=== PATIENT | male | born 1960 | race Caucasian/White ===

== ENCOUNTER 2017-12-10 17:33 | Inpatient (IN) | payer BC ==
[2017-12-10] MEDS ORDERED: PIPERACILLIN-TAZOBACTAM 3.375 GM in DEXTROSE/WATER 1 50ML.BAG IVPB STA (18:37)
--- NOTE | 2017-12-10 18:38 | ED ---
General Adult HPI - General Chief complaint: Abdominal Pain Stated complaint: abdominal pain Time Seen by Provider: 12/10/17 17:35 Source: patient, RN notes reviewed, old records reviewed Mode of arrival: EMS Limitations: no limitations - History of Present Illness Initial comments: 57-year-old male presents as transfer from outside hospital. Patient has had intermittent abdominal pain for approximately one month. He has had worsening nausea and vomiting over the past 24 hours as well as change in his bowels. His had multiple bowel movements daily for the past several days including some rectal bleeding. Patient was seen and CT was obtained which did show a small bowel obstruction with intussusception of the distal ileum. He was transferred for surgical evaluation. - Related Data Home Medications Medication Instructions Recorded Confirmed Bifidobacterium Infantis [Align] 10.5 mg PO DAILY 12/10/17 12/10/17 Ibuprofen [Motrin Ib] 200 mg PO DAILY 12/10/17 12/10/17 Saw [place] 1,000 mg PO DAILY 12/10/17 12/10/17 Allergies Allergy/AdvReac Type Severity Reaction Status Date / Time pollen extracts Allergy Dyspnea Verified 12/10/17 17:54 fentanyl AdvReac Nausea & Verified 12/10/17 17:54 Vomiting Review of Systems ROS Statement: Those systems with pertinent positive or pertinent negative responses have been documented in the HPI. ROS Other: All systems not noted in ROS Statement are negative. Past Medical History Past Medical History: No Reported History Additional Past Medical History / Comment(s): GALLSTONES, NAUSEA, DIARRHEA History of Any Multi-Drug Resistant Organisms: None Reported Past Surgical History: Back Surgery, Cholecystectomy, Orthopedic Surgery Additional Past Surgical History / Comment(s): RIGHT KNEE,. LEFT ANKLE,. LEFT ARM SEVERED ARTERY REPAIRED Past Anesthesia/Blood Transfusion Reactions: Postoperative Nausea & Vomiting ( PONV) Past Psychological History: No Psychological Hx Reported Smoking Status: Never smoker Past Alcohol Use History: Occasional Past Drug Use History: None Reported - Past Family History Father Family Medical History: Cancer Mother Family Medical History: Cancer Sister(s) Family Medical History: Cancer General Exam Limitations: no limitations General appearance: alert, in no apparent distress Head exam: Present: atraumatic, normocephalic Eye exam: Present: normal appearance, PERRL, EOMI ENT exam: Present: normal exam Neck exam: Present: normal inspection. Absent: tenderness, meningismus Respiratory exam: Present: normal lung sounds bilaterally. Absent: respiratory distress, wheezes Cardiovascular Exam: Present: regular rate, normal rhythm GI/Abdominal exam: Present: soft, distended, tenderness (Generalized tenderness to palpation, no rebound or guarding) Extremities exam: Present: normal inspection, full ROM, normal capillary refill. Absent: pedal edema Neurological exam: Present: alert, oriented X3, CN II-XII intact. Absent: motor sensory deficit Psychiatric exam: Present: normal affect, normal mood Skin exam: Present: warm, dry, intact. Absent: cyanosis, diaphoretic Course Vital Signs 12/10/17 17:51 Temperature 98.5 F Pulse Rate 93 Respiratory 18 Rate Blood Pressure 146/88 O2 Sat by Pulse 98 Oximetry Medical Decision Making - Medical Decision Making Laboratory studies from outside hospital are reviewed, white blood cell count 15.7, hemoglobin 17.1, creatinine is 1.1. Urinalysis showed 1+ ketones consistent with dehydration. CT will be uploaded the system, the interpretation by radiologist does reveal small bowel instruction and 10 cm intussusception of the distal ileum. This is discussed with Dr. Steward, he requests NG tube for decompression and will evaluate the patient. Disposition Clinical Impression: Intussusception of intestine, Small bowel obstruction Disposition: ADMITTED IP TO THIS HOSP Condition: Stable Is patient prescribed a controlled substance at d/c from ED?: No Referrals: Cyril Reynolds MD [Primary Care Provider] - 1-2 days Decision to Admit Reason: Admit from EC Decision Date: 12/10/17 Decision Time: 18:50
[2017-12-10] MEDS ORDERED: SODIUM CHLORIDE 0.9% 1,000 ML IV SCH (18:45)
[2017-12-10] MEDS ORDERED: NALOXONE 0.4 MG/ML 1 ML VIAL IV PRN (18:46)
[2017-12-10] MEDS: ONDANSETRON 4 MG/2 ML VIAL IVP PRN (19:57)
[2017-12-10] MEDS: LACTATED RINGERS 1,000 ML IV SCH (22:16)
[2017-12-11] MEDS: HYDROmorphone 0.5 MG/0.5 ML SYRINGE IVP PRN ×3 (01:25→11:01)
[2017-12-11] MEDS: LACTATED RINGERS 1,000 ML IV SCH ×5 (04:59→22:16)
--- NOTE | 2017-12-11 07:29 | XR ---
EXAMINATION TYPE: XR abdomen 2V DATE OF EXAM: 12/11/2017 COMPARISON: NONE INDICATION: Distention TECHNIQUE: Single view abdomen upright view. Additional supine view was obtained. FINDINGS: Multiple air-fluid levels are within prominent small bowel loops upper abdomen. Little bowel gas is w ithin the colon. Cholecystectomy clips are in the right upper quadrant. No free air is present. Nasogastric tube is in left arm in the abdomen. Psoas margins are normal. Postsurgical changes are within L4-S1 levels. Mass effect is not evident. IMPRESSION: 1. Findings compatible with high-grade small bowel obstruction.
[2017-12-11 07:42] LABS: Basophils % (A) 0 %; Eosinophils # (A) 0.1 k/uL (0-0.7); Eosinophils % (A) 1 %; HCT 47.9 % (39.0-53.0); HGB 15.9 gm/dL (13.0-17.5); Lymphocytes # (A) 1.9 k/uL (1.0-4.8); Lymphocytes % (A) 14 %; MCH 31.8 pg (25.0-35.0); MCHC 33.1 g/dL (31.0-37.0); Mean Platelet Volume 7.3; Monocytes # (A) 0.8 k/uL (0-1.0); Monocytes % (A) 6 %; Neutrophils # (A) 10.5 k/uL (1.3-7.7); Neutrophils % (A) 78 %; Platelet Count 277 k/uL (150-450); RBC 4.99 m/uL (4.30-5.90); RDW 13.4 % (11.5-15.5); WBC 13.5 k/uL (3.8-10.6)
[2017-12-11 08:01] LABS: Albumin 3.8 g/dL (3.5-5.0); Calcium 9.7 mg/dL (8.4-10.2); Magnesium 2.1 mg/dL (1.6-2.3); Total Bilirubin 1.1 mg/dL (0.2-1.3); Total Protein 6.2 g/dL (6.3-8.2)
--- NOTE | 2017-12-11 10:32 | P.GSHP ---
History of Present Illness H&P Date: 12/11/17 57-year-old male presents from an outside facility due to finding of small bowel obstruction. He states that over the past month, he has had episodes of abdominal pain that is mostly been epigastric in nature. He states yesterday he suddenly had lower abdominal pain that was severe in nature. 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 He complained of some nausea but denied any emesis episodes. He presented to an outside facility and was found to have leukocytosis on workup and CT of the abdomen and pelvis illustrated a intussusception. He denies ever having this type of pain previously. He states his only previous abdominal surgery has been a gallbladder procedure. He states his pain is somewhat improved today. He denies any fevers, chills, chest pain or shortness of breath. He has no additional complaints at this time. - Review of Systems All systems: negative Past Medical History Past Medical History: No Reported History Additional Past Medical History / Comment(s): GALLSTONES, NAUSEA, DIARRHEA History of Any Multi-Drug Resistant Organisms: None Reported Past Surgical History: Back Surgery, Cholecystectomy, Orthopedic Surgery Additional Past Surgical History / Comment(s): RIGHT KNEE,. LEFT ANKLE,. LEFT ARM SEVERED ARTERY REPAIRED Past Anesthesia/Blood Transfusion Reactions: Postoperative Nausea & Vomiting ( PONV) Past Psychological History: No Psychological Hx Reported Smoking Status: Never smoker Past Alcohol Use History: Occasional Past Drug Use History: None Reported - Past Family History Father Family Medical History: Cancer Mother Family Medical History: Cancer Sister(s) Family Medical History: Cancer Medications and Allergies Home Medications Medication Instructions Recorded Confirmed Type Bifidobacterium Infantis [Align] 10.5 mg PO DAILY 12/10/17 12/10/17 History Ibuprofen [Motrin Ib] 200 mg PO DAILY 12/10/17 12/10/17 History Saw [place] 1,000 mg PO DAILY 12/10/17 12/10/17 History Allergies Allergy/AdvReac Type Severity Reaction Status Date / Time pollen extracts Allergy Dyspnea Verified 12/10/17 17:54 fentanyl AdvReac Nausea & Verified 12/10/17 17:54 Vomiting Surgical - Exam Osteopathic Statement: *. No significant issues noted on an osteopathic structural exam other than those noted in the History and Physical/Consult. Vital Signs Temp Pulse Resp BP Pulse Ox 98.5 F 93 18 146/88 98 12/10/17 17:51 12/10/17 17:51 12/10/17 17:51 12/10/17 17:51 12/10/17 17:51 - General well nourished, no distress - Eyes normal ocular movement - ENT normal mucosa, no hearing loss - Neck trachea midline - Respiratory No difficulty with respiration - Abdomen Soft, tenderness in the lower portion of his abdomen, mildly distended, no rebound, no guarding - Neurologic normal coordination, normal sensation - Musculoskeletal normal gait - Psychiatric oriented to time, oriented to person, oriented to place, speech is normal Results - Labs 12/11/17 06:30 12/11/17 06:30 Abnormal Lab Results - Last 24 Hours (Table) 12/11/17 12/11/17 Range/Units 06:30 06:30 WBC 13.5 H (3.8-10.6) k/uL Neutrophils # 10.5 H (1.3-7.7) k/uL BUN 23 H (9-20) mg/dL Glucose 107 H (74-99) mg/dL Total Protein 6.2 L (6.3-8.2) g/dL Diabetes panel 12/11/17 Range/Units 06:30 Sodium 141 (137-145) mmol/L Potassium 5.0 (3.5-5.1) mmol/L Chloride 104 (98-107) mmol/L Carbon Dioxide 26 (22-30) mmol/L BUN 23 H (9-20) mg/dL Creatinine 1.08 (0.66-1.25) mg/dL Glucose 107 H (74-99) mg/dL Calcium 9.7 (8.4-10.2) mg/dL AST 26 (17-59) U/L ALT 32 (21-72) U/L Alkaline Phosphatase 50 (38-126) U/L Total Protein 6.2 L (6.3-8.2) g/dL Albumin 3.8 (3.5-5.0) g/dL Calcium panel 12/11/17 Range/Units 06:30 Calcium 9.7 (8.4-10.2) mg/dL Albumin 3.8 (3.5-5.0) g/dL Pituitary panel 12/11/17 Range/Units 06:30 Sodium 141 (137-145) mmol/L Potassium 5.0 (3.5-5.1) mmol/L Chloride 104 (98-107) mmol/L Carbon Dioxide 26 (22-30) mmol/L BUN 23 H (9-20) mg/dL Creatinine 1.08 (0.66-1.25) mg/dL Glucose 107 H (74-99) mg/dL Calcium 9.7 (8.4-10.2) mg/dL Adrenal panel 12/11/17 Range/Units 06:30 Sodium 141 (137-145) mmol/L Potassium 5.0 (3.5-5.1) mmol/L Chloride 104 (98-107) mmol/L Carbon Dioxide 26 (22-30) mmol/L BUN 23 H (9-20) mg/dL Creatinine 1.08 (0.66-1.25) mg/dL Glucose 107 H (74-99) mg/dL Calcium 9.7 (8.4-10.2) mg/dL Total Bilirubin 1.1 (0.2-1.3) mg/dL AST 26 (17-59) U/L ALT 32 (21-72) U/L Alkaline Phosphatase 50 (38-126) U/L Total Protein 6.2 L (6.3-8.2) g/dL Albumin 3.8 (3.5-5.0) g/dL - Imaging CT scan - abdomen: report reviewed CT scan - pelvis: report reviewed Assessment and Plan (1) Intussusception of intestine Current Visit: Yes Status: Acute Code(s): K56.1 - INTUSSUSCEPTION SNOMED Code(s): 40442609 (2) Small bowel obstruction Narrative/Plan: Due to finding of small bowel obstruction, I did discuss this case in depth with radiology department. I also did order a abdominal x-ray to continue to follow the obstruction. The radiologist does agree with the finding of intussusception of the small bowel. The patient does continue to have evidence of obstruction on x-ray. He is not peritoneal in his examination. Due to the consistent obstruction and finding of intussusception, we will plan for an exploratory laparotomy. NG tube is in place and we will continue to keep this in place. IV fluid resuscitation is ongoing. I discussed this with the patient and the patient is agreeable to this plan. Current Visit: Yes Status: Acute Code(s): K56.609 - UNSP INTESTNL OBST, UNSP TO PARTIAL VERSUS COMPLETE OBST SNOMED Code(s): 509431593
[2017-12-11] MEDS ORDERED: IV FLUID CONTINUATION 1,000 ML IV ONE (11:58)
[2017-12-11] MEDS: ONDANSETRON 4 MG/2 ML VIAL IVP PRN ×2 (12:11→21:11)
[2017-12-11] MEDS: HEPARIN SODIUM,PORCINE 5,000 UNIT/ML 1 ML VIAL SQ SCH ×2 (13:05→23:50)
[2017-12-11] MEDS ORDERED: metroNIDAZOLE-NS PMX 500 MG in SALINE 1 100ML.BAG IVPB STA (13:07)
[2017-12-11] MEDS ORDERED: SUCCINYLCHOLINE CHLORIDE 100 MG/5 ML SYR IV ONE (13:10)
[2017-12-11] MEDS ORDERED: LIDOCAINE 1% INJ 10MG/ML (20 ML MDV) ONE (13:10)
[2017-12-11] MEDS ORDERED: DEXAMETHASONE SOD PHOS (MDV) 100 MG/10 ML VIAL ONE (13:10)
[2017-12-11] MEDS ORDERED: ROCURONIUM BROMIDE 10 MG/ML 10 ML VIAL IV ONE (13:10)
[2017-12-11] MEDS ORDERED: NEOSTIGMINE 1 MG/ML 10 ML VIAL ONE (13:10)
[2017-12-11] MEDS ORDERED: ONDANSETRON 4 MG/2 ML VIAL ONE (13:10)
[2017-12-11] MEDS ORDERED: PROPOFOL 10 MG/ML 20 ML VIAL IV ONE (13:10)
[2017-12-11] MEDS ORDERED: HYDROmorphone (PF) 1 MG/ML ONE (13:10)
[2017-12-11] MEDS ORDERED: ceFAZolin IN SWFI 2 GM/20 ML SYRINGE IVP STA (13:10)
[2017-12-11] MEDS ORDERED: MIDAZOLAM 2 MG/2 ML VIAL ONE (13:10)
[2017-12-11] MEDS ORDERED: GLYCOPYRROLATE 0.2 MG/ML 2 ML VIAL ONE (13:10)
[2017-12-11] MEDS ORDERED: LACTATED RINGERS 1,000 ML IV ONE ×2 (13:40→15:00)
--- NOTE | 2017-12-11 14:57 | P.OP ---
Date of Procedure: 12/11/17 Preoperative Diagnosis: Small bowel obstruction Postoperative Diagnosis: Intussusception of small bowel Small bowel mass Procedure(s) Performed: Expiratory laparotomy Small bowel resection Anesthesia: AZAR Surgeon: Juvenal Steward Pathology: other (Small bowel, small bowel mass) Condition: stable Disposition: floor Indications for Procedure: 57-year-old male presented to the emergency department as a transfer from another hospital due to small bowel obstruction. On CT of the abdomen and pelvis he was suspected to have intussusception. His small bowel obstruction did not improve with nasogastric tube decompression and due to continued small bowel obstruction symptoms, expiratory laparotomy was planned. The patient was explained the risks, benefits and alternatives to the procedure. He did provide consent prior to attending the operating suite. Operative Findings: Small bowel mass and intussusception of the small bowel was noted Description of Procedure: The patient was brought into the operating suite and placed in supine position on the operating table. Sedation was provided by anesthesia and the patient underwent endotracheal intubation. The patient was then prepped and draped in regular sterile fashion. A midline vertical incision was made dissection was carried to the fascia and the fascia was incised along the length of the incision. There was noted to be some mild fluid that had built up in the abdomen. The small bowel was noted to be dilated and was eviscerated from the abdomen. The small bowel was then run from the ligament of Treitz distally. In the ileum a site of obstruction was noted add-in intussusception. Proximally from this point, dilation of the bowel was noted. Distally from the site, the bowel was noted to be decompressed. The intussusception was reduced and a small bowel mass was noted. Both a point of proximal and distal transection were decided. Windows were created in the mesentery. DOMINGO blue load 75 mm staplers were fired at both of these ends. A LigaSure device was then used to resect the small bowel from the mesentery. Hemostasis was noted to be maintained. At this point, a anastomosis was created between the 2 portions of small bowel. Enterotomies were created at both ends and a side-to- side anastomosis was created using a DOMINGO 75 mm blue load stapler. Hemostasis was continued to be maintained. A TX stapler was then used to close the resulting enterotomy. A 3-0 Vicryl suture was used at the crotch of the staple line to prevent tension on the staple line. The defect in the mesentery was closed with a running 2-0 Vicryl suture. Hemostasis was noted to be maintained. At this point copious muss irrigation was used within the abdomen. The nasogastric tube was palpated within the stomach. The liver was palpated and no obvious mass was noted. At this point the fascia was closed with a running looped PDS suture. Skin was then closed with skin basim. The patient was then awakened in the operating suite and taken to the postanesthesia care unit in stable condition.
[2017-12-11] MEDS ORDERED: HYDROmorphone 1 MG/ML 1 ML SYRINGE IVP ONE ×2 (15:05→15:13)
[2017-12-11] MEDS: ceFAZolin 1,000 MG in DEXTROSE/WATER 1 50ML.BAG IVPB SCH (21:11)
[2017-12-11] MEDS: metroNIDAZOLE-NS PMX 500 MG in SALINE 1 100ML.BAG IVPB SCH (21:20)
[2017-12-12] MEDS: metroNIDAZOLE-NS PMX 500 MG in SALINE 1 100ML.BAG IVPB SCH (03:49)
[2017-12-12] MEDS: ceFAZolin 1,000 MG in DEXTROSE/WATER 1 50ML.BAG IVPB SCH (03:49)
[2017-12-12] MEDS: LACTATED RINGERS 1,000 ML IV SCH ×6 (03:53→20:58)
[2017-12-12] MEDS: HYDROmorphone 0.5 MG/0.5 ML SYRINGE IVP PRN ×3 (05:21→19:13)
[2017-12-12 07:39] LABS: Basophils % (A) 0 %; Eosinophils # (A) 0.1 k/uL (0-0.7); Eosinophils % (A) 0 %; HCT 46.9 % (39.0-53.0); HGB 15.3 gm/dL (13.0-17.5); Lymphocytes # (A) 1.5 k/uL (1.0-4.8); Lymphocytes % (A) 8 %; MCH 31.6 pg (25.0-35.0); MCHC 32.5 g/dL (31.0-37.0); Mean Platelet Volume 7.2; Monocytes # (A) 1.1 k/uL (0-1.0); Monocytes % (A) 6 %; Neutrophils # (A) 14.9 k/uL (1.3-7.7); Neutrophils % (A) 84 %; Platelet Count 262 k/uL (150-450); RBC 4.84 m/uL (4.30-5.90); RDW 13.2 % (11.5-15.5); WBC 17.8 k/uL (3.8-10.6)
[2017-12-12 07:59] LABS: ALT 32 U/L (21-72); AST 24 U/L (17-59); Albumin 3.5 g/dL (3.5-5.0); Alkaline Phosphatase 42 U/L (38-126); Anion Gap 12 mmol/L; Blood Urea Nitrogen 19 mg/dL (9-20); Carbon Dioxide 27 mmol/L (22-30); Chloride 100 mmol/L (98-107); Glucose 109 mg/dL (74-99); Potassium 4.3 mmol/L (3.5-5.1); Sodium 139 mmol/L (137-145); Total Protein 5.8 g/dL (6.3-8.2)
--- NOTE | 2017-12-12 08:35 | P.PN ---
Subjective Progress Note Date: 12/12/17 Patient seen and examined at bedside. Overnight, did receive a patent secondary to Hammond catheter issue. It appeared that the Hammond catheter did have a clot at the tip he was unable to drain. This seemed to resolve with flushes. He denies any nausea and vomiting. NG tube has been in place with continued bilious output. He denies any flatus or bowel movement. Objective - Vital Signs Vital signs: Vital Signs Temp 98.5 F 12/12/17 07:33 Pulse 79 12/12/17 07:33 Resp 16 12/12/17 07:33 BP 136/79 12/12/17 07:33 Pulse Ox 97 12/12/17 07:33 Intake & Output 12/11/17 12/12/17 12/12/17 18:59 06:59 18:59 Intake Total 2775 2170 Output Total 535 1750 350 Balance 2240 420 -350 Intake: IV 2775 1200 Lactated Ringers 1,000 ml 625 1200 @ 150 mls/hr IV .Q6H40M [facility] Rx#:[id number] Intake, IV Titration 970 Amount Lactated Ringers 1,000 ml 370 As IV .STK-MED ONE Rx#: [id number] ceFAZolin 1,000 mg In 300 Dextrose/Water 1 50ml.bag @ 100 mls/hr IVPB Q8H [facility] Rx#:[id number] metroNIDAZOLE-NS PMX 500 300 mg In Saline 1 100ml.bag @ 100 mls/hr IVPB Q8H [facility] Rx#:[id number] Output: Gastric Drainage 50 300 Urine 465 1450 350 Uretheral (Hammond) 1000 350 Estimated Blood Loss 20 Other: Voiding Method Indwelling Catheter Indwelling Catheter Indwelling Catheter # Voids 3 1 - Constitutional General appearance: Present: cooperative, no acute distress - Respiratory Details: No difficulty with respiration - Gastrointestinal Gastrointestinal Comment(s): Soft, appropriate tenderness, nondistended, no rebound, no guarding, midline incision with surgical dressing in place - Psychiatric Psychiatric: Present: A&O x's 3, appropriate affect - Labs CBC & Chem 7: 12/12/17 06:58 12/12/17 06:58 Labs: Abnormal Lab Results - Last 24 Hours (Table) 12/12/17 12/12/17 Range/Units 06:58 06:58 WBC 17.8 H (3.8-10.6) k/uL Neutrophils # 14.9 H (1.3-7.7) k/uL Monocytes # 1.1 H (0-1.0) k/uL Glucose 109 H (74-99) mg/dL Total Protein 5.8 L (6.3-8.2) g/dL Assessment and Plan (1) Intussusception of intestine Current Visit: Yes Status: Acute Code(s): K56.1 - INTUSSUSCEPTION SNOMED Code(s): 28794085 (2) Small bowel obstruction Narrative/Plan: Postoperative day #1 status post exploratory laparotomy and small bowel resection - Continue NG tube to low intermittent suction - Discontinue Hammond catheter - I discussed and encouraged ambulation and incentive spirometry with the patient - Keep nothing by mouth, located have ice chips and chew gum - Awaiting pathology for small bowel mass that was resected - Progressing slowly Current Visit: Yes Status: Acute Code(s): K56.609 - UNSP INTESTNL OBST, UNSP TO PARTIAL VERSUS COMPLETE OBST SNOMED Code(s): 477485690
[2017-12-12] MEDS: PANTOPRAZOLE 40 MG/10 ML VIAL IV SCH (10:05)
[2017-12-12] MEDS: HEPARIN SODIUM,PORCINE 5,000 UNIT/ML 1 ML VIAL SQ SCH ×2 (10:05→16:34)
[2017-12-12] MEDS: PIPERACILLIN-TAZOBACTAM 3.375 GM in DEXTROSE/WATER 1 50ML.BAG IVPB SCH ×2 (10:18→16:35)
[2017-12-13] MEDS: PIPERACILLIN-TAZOBACTAM 3.375 GM in DEXTROSE/WATER 1 50ML.BAG IVPB SCH ×4 (00:02→23:42)
[2017-12-13] MEDS: HEPARIN SODIUM,PORCINE 5,000 UNIT/ML 1 ML VIAL SQ SCH ×4 (00:02→23:43)
[2017-12-13] MEDS: LACTATED RINGERS 1,000 ML IV SCH ×3 (06:04→22:53)
[2017-12-13] MEDS: PANTOPRAZOLE 40 MG/10 ML VIAL IV SCH (08:23)
--- NOTE | 2017-12-13 09:13 | P.PN ---
Subjective Progress Note Date: 12/13/17 Patient seen and examined at bedside. He states he is feeling well. States pain is well-controlled. Denies any nausea or vomiting. NG tube is in place. States she feels rumbling in his belly but has not had any flatus or bowel movements as of yet. Objective - Vital Signs Vital signs: Vital Signs Temp 98.3 F 12/13/17 08:05 Pulse 77 12/13/17 08:05 Resp 18 12/13/17 08:05 BP 141/73 12/13/17 08:05 Pulse Ox 97 12/13/17 08:05 Intake & Output 12/12/17 12/13/17 12/13/17 18:59 06:59 18:59 Intake Total 1500 Output Total 1265 850 Balance -1265 650 Intake: IV 1500 Lactated Ringers 1,000 ml 1500 @ 125 mls/hr IV .Q8H [facility] Rx#:[id number] Output: Gastric Drainage 540 200 Urine 725 650 Uretheral (Hamm[place]) 350 Other: Voiding Method Indwelling Catheter Urinal # Voids 1 1 - Constitutional General appearance: Present: cooperative, no acute distress - EENT ENT: Present: hearing grossly normal - Neck Neck: Present: normal ROM - Respiratory Details: No difficulty with respiration - Gastrointestinal Gastrointestinal Comment(s): Soft, appropriate tenderness, nondistended, no rebound, no guarding, midline incision site clean, dry and intact with basim in place - Psychiatric Psychiatric: Present: A&O x's 3, appropriate affect - Labs CBC & Chem 7: 12/12/17 06:58 12/12/17 06:58 Assessment and Plan (1) Intussusception of intestine Current Visit: Yes Status: Acute Code(s): K56.1 - INTUSSUSCEPTION SNOMED Code(s): 24570856 (2) Small bowel obstruction Narrative/Plan: Postoperative day #2 status post exploratory laparotomy and small bowel resection - Continue NG tube to low intermittent suction - Await bowel function - Continue antibiotics, awaiting CBC from this a.m. - I discussed and encouraged ambulation and incentive spirometry with the patient - Keep nothing by mouth, located have ice chips and chew gum - Awaiting pathology for small bowel mass that was resected - Progressing slowly Current Visit: Yes Status: Acute Code(s): K56.609 - UNSP INTESTNL OBST, UNSP TO PARTIAL VERSUS COMPLETE OBST SNOMED Code(s): 761663323
[2017-12-13 09:54] LABS: Basophils % (A) 0 %; Eosinophils # (A) 0.2 k/uL (0-0.7); Eosinophils % (A) 2 %; HCT 44.5 % (39.0-53.0); HGB 14.8 gm/dL (13.0-17.5); Lymphocytes # (A) 1.7 k/uL (1.0-4.8); Lymphocytes % (A) 14 %; MCH 31.9 pg (25.0-35.0); MCHC 33.2 g/dL (31.0-37.0); MCV 95.9 fL (80.0-100.0); Mean Platelet Volume 7.2; Monocytes # (A) 0.8 k/uL (0-1.0); Monocytes % (A) 7 %; Neutrophils # (A) 9.2 k/uL (1.3-7.7); Neutrophils % (A) 76 %; Platelet Count 230 k/uL (150-450); RBC 4.64 m/uL (4.30-5.90); RDW 12.6 % (11.5-15.5); WBC 12.1 k/uL (3.8-10.6)
[2017-12-13 10:03] LABS: Anion Gap 9 mmol/L; Calcium 8.9 mg/dL (8.4-10.2); Carbon Dioxide 26 mmol/L (22-30); Chloride 102 mmol/L (98-107); Glucose 97 mg/dL (74-99); Sodium 137 mmol/L (137-145)
[2017-12-13 10:04] LABS: Blood Urea Nitrogen 19 mg/dL (9-20); Potassium 4.2 mmol/L (3.5-5.1)
[2017-12-14] MEDS: LACTATED RINGERS 1,000 ML IV SCH ×3 (03:00→20:40)
[2017-12-14] MEDS: HEPARIN SODIUM,PORCINE 5,000 UNIT/ML 1 ML VIAL SQ SCH ×2 (08:18→15:18)
[2017-12-14] MEDS: PIPERACILLIN-TAZOBACTAM 3.375 GM in DEXTROSE/WATER 1 50ML.BAG IVPB SCH ×2 (08:18→15:17)
[2017-12-14] MEDS: PANTOPRAZOLE 40 MG/10 ML VIAL IV SCH (08:18)
--- NOTE | 2017-12-14 08:31 | P.PN ---
Subjective Progress Note Date: 12/14/17 Patient seen and examined at bedside. He states he is feeling well. He states he had 1 bowel movement and an episode of flatus. He denies any nausea and vomiting. NG tube has been in place. Objective - Vital Signs Vital signs: Vital Signs Temp 99.4 F 12/14/17 00:20 Pulse 85 12/14/17 00:20 Resp 16 12/14/17 00:20 BP 146/84 12/14/17 00:20 Pulse Ox 91 L 12/14/17 00:20 Intake & Output 12/13/17 12/14/17 12/14/17 18:59 06:59 18:59 Intake Total 1000 250 Output Total 500 1525 Balance 500 -1275 Intake: IV 250 Lactated Ringers 1,000 ml 250 @ 125 mls/hr IV .Q8H [facility] Rx#:[id number] Intake, IV Titration 1000 Amount Lactated Ringers 1,000 ml 1000 @ 125 mls/hr IV .Q8H [facility] Rx#:[id number] Output: Gastric Drainage 200 Urine 300 1075 Oral Regurgitation 450 Other: Voiding Method Urinal # Bowel Movements 1 - Constitutional General appearance: Present: cooperative, no acute distress - Respiratory Details: No difficulty with respiration - Gastrointestinal Gastrointestinal Comment(s): Soft, appropriate tenderness, nondistended, no rebound, midline incision site with basim in place clean, dry and intact - Psychiatric Psychiatric: Present: A&O x's 3, appropriate affect - Labs CBC & Chem 7: 12/13/17 09:30 12/13/17 09:30 Labs: Abnormal Lab Results - Last 24 Hours (Table) 12/13/17 Range/Units 09:30 WBC 12.1 H (3.8-10.6) k/uL Neutrophils # 9.2 H (1.3-7.7) k/uL Assessment and Plan (1) Intussusception of intestine Current Visit: Yes Status: Acute Code(s): K56.1 - INTUSSUSCEPTION SNOMED Code(s): 93015989 (2) Small bowel obstruction Narrative/Plan: Postoperative day #3 status post exploratory laparotomy and small bowel resection - Clamp NG tube, begin trial of clear liquid diet - Continue antibiotics - I discussed and encouraged ambulation and incentive spirometry with the patient - Awaiting pathology for small bowel mass that was resected - Progressing slowly Current Visit: Yes Status: Acute Code(s): K56.609 - UNSP INTESTNL OBST, UNSP TO PARTIAL VERSUS COMPLETE OBST SNOMED Code(s): 622058930
[2017-12-14 08:35] LABS: Basophils % (A) 0 %; Eosinophils # (A) 0.3 k/uL (0-0.7); Eosinophils % (A) 3 %; HCT 44.9 % (39.0-53.0); HGB 14.7 gm/dL (13.0-17.5); Lymphocytes # (A) 1.5 k/uL (1.0-4.8); Lymphocytes % (A) 14 %; MCH 30.8 pg (25.0-35.0); MCHC 32.9 g/dL (31.0-37.0); MCV 93.8 fL (80.0-100.0); Mean Platelet Volume 7.7; Monocytes # (A) 0.8 k/uL (0-1.0); Monocytes % (A) 8 %; Neutrophils # (A) 7.5 k/uL (1.3-7.7); Neutrophils % (A) 74 %; Platelet Count 291 k/uL (150-450); RBC 4.79 m/uL (4.30-5.90); RDW 12.3 % (11.5-15.5); WBC 10.2 k/uL (3.8-10.6)
[2017-12-14 08:42] LABS: Anion Gap 10 mmol/L; Blood Urea Nitrogen 17 mg/dL (9-20); Carbon Dioxide 28 mmol/L (22-30); Chloride 101 mmol/L (98-107); Glucose 86 mg/dL (74-99); Sodium 139 mmol/L (137-145)
[2017-12-14 11:46] VITALS: BMI 30.4
[2017-12-15] MEDS: PIPERACILLIN-TAZOBACTAM 3.375 GM in DEXTROSE/WATER 1 50ML.BAG IVPB SCH (00:22)
[2017-12-15] MEDS: HEPARIN SODIUM,PORCINE 5,000 UNIT/ML 1 ML VIAL SQ SCH ×4 (00:22→23:33)
[2017-12-15] MEDS: LACTATED RINGERS 1,000 ML IV SCH ×3 (04:37→21:49)
[2017-12-15 07:26] LABS: Basophils % (A) 0 %; Eosinophils # (A) 0.5 k/uL (0-0.7); Eosinophils % (A) 5 %; HCT 40.8 % (39.0-53.0); HGB 13.9 gm/dL (13.0-17.5); Lymphocytes # (A) 1.8 k/uL (1.0-4.8); Lymphocytes % (A) 22 %; MCH 32.2 pg (25.0-35.0); MCHC 34.1 g/dL (31.0-37.0); MCV 94.3 fL (80.0-100.0); Mean Platelet Volume 7.2; Monocytes # (A) 0.6 k/uL (0-1.0); Monocytes % (A) 7 %; Neutrophils # (A) 5.5 k/uL (1.3-7.7); Neutrophils % (A) 64 %; Platelet Count 303 k/uL (150-450); RBC 4.32 m/uL (4.30-5.90); RDW 13.1 % (11.5-15.5); WBC 8.5 k/uL (3.8-10.6)
[2017-12-15] MEDS ORDERED: HYDROcodone/APAP 5-325MG 1 EACH TAB PO PRN (07:30)
--- NOTE | 2017-12-15 07:37 | P.PN ---
Subjective Progress Note Date: 12/15/17 Patient seen and examined at bedside. No acute events overnight. He states he has had multiple bowel movements. He is passing flatus. Abdominal pain is controlled. Denies any nausea vomiting. Tolerating clear liquid diet. Objective - Vital Signs Vital signs: Vital Signs Temp 98.4 F 12/15/17 00:50 Pulse 66 12/15/17 00:50 Resp 16 12/15/17 00:50 BP 143/87 12/15/17 00:50 Pulse Ox 94 L 12/15/17 00:50 Intake & Output 12/14/17 12/15/17 12/15/17 18:59 06:59 18:59 Intake Total 600 920 Output Total 300 200 Balance 300 720 Weight 90.718 kg Intake: Oral 600 920 Output: Urine 300 200 Other: # Voids 3 1 # Bowel Movements 1 - Constitutional General appearance: Present: cooperative, no acute distress - Respiratory Details: No difficulty with respiration - Gastrointestinal Gastrointestinal Comment(s): Soft, appropriate tenderness, nondistended, no rebound, no guarding, midline incision site is clean, dry and intact with basim in place - Psychiatric Psychiatric: Present: A&O x's 3, appropriate affect - Labs CBC & Chem 7: 12/15/17 06:57 12/14/17 07:54 Assessment and Plan (1) Intussusception of intestine Current Visit: Yes Status: Acute Code(s): K56.1 - INTUSSUSCEPTION SNOMED Code(s): 89442619 (2) Small bowel obstruction Narrative/Plan: Postoperative day #4 status post exploratory laparotomy and small bowel resection - Begin soft diet - Continue antibiotics - I discussed and encouraged ambulation and incentive spirometry with the patient - Awaiting pathology for small bowel mass that was resected - Discharge anticipated in 24 hours Current Visit: Yes Status: Acute Code(s): K56.609 - UNSP INTESTNL OBST, UNSP TO PARTIAL VERSUS COMPLETE OBST SNOMED Code(s): 550482717
[2017-12-15] MEDS: PANTOPRAZOLE 40 MG/10 ML VIAL IV SCH (07:54)
[2017-12-15 08:03] LABS: Anion Gap 12 mmol/L; Blood Urea Nitrogen 18 mg/dL (9-20); Calcium 9.1 mg/dL (8.4-10.2); Carbon Dioxide 24 mmol/L (22-30); Chloride 102 mmol/L (98-107); Glucose 87 mg/dL (74-99); Sodium 138 mmol/L (137-145)
[2017-12-15 15:25] VITALS: RESP 16
[2017-12-16 01:51] VITALS: BP 152/94; PULSE 83; TEMP 98.2
[2017-12-16] MEDS ORDERED: PANTOPRAZOLE 40 MG TABLET PO SCH (09:00)
[2017-12-16 09:16] LABS: Anion Gap 11 mmol/L; Blood Urea Nitrogen 16 mg/dL (9-20); Calcium 9.4 mg/dL (8.4-10.2); Carbon Dioxide 27 mmol/L (22-30); Chloride 101 mmol/L (98-107); Glucose 94 mg/dL (74-99); Potassium 4.1 mmol/L (3.5-5.1); Sodium 139 mmol/L (137-145)
[2017-12-16 09:40] LABS: Basophils % (A) 0 %; Eosinophils # (A) 0.4 k/uL (0-0.7); Eosinophils % (A) 5 %; HCT 41.2 % (39.0-53.0); HGB 13.9 gm/dL (13.0-17.5); Lymphocytes # (A) 1.8 k/uL (1.0-4.8); Lymphocytes % (A) 24 %; MCH 31.6 pg (25.0-35.0); MCHC 33.8 g/dL (31.0-37.0); MCV 93.5 fL (80.0-100.0); Mean Platelet Volume 7.4; Monocytes # (A) 0.6 k/uL (0-1.0); Monocytes % (A) 8 %; Neutrophils # (A) 4.5 k/uL (1.3-7.7); Neutrophils % (A) 61 %; Platelet Count 315 k/uL (150-450); RBC 4.41 m/uL (4.30-5.90); RDW 12.6 % (11.5-15.5); WBC 7.4 k/uL (3.8-10.6)
[2017-12-16] MEDS: HEPARIN SODIUM,PORCINE 5,000 UNIT/ML 1 ML VIAL SQ SCH (10:56)
[2017-12-16] MEDS: LACTATED RINGERS 1,000 ML IV SCH ×2 (10:56→10:57)
--- NOTE | 2017-12-16 11:24 | P.DS ---
Providers Date of admission: 12/10/17 18:46 Attending physician: Juvenal Steward DO Primary care physician: Cyril Reynolds - Discharge Diagnosis(es) (1) Intussusception of intestine Current Visit: Yes Status: Acute (2) Small bowel obstruction Current Visit: Yes Status: Acute Hospital Course: The patient presented with a small bowel obstruction likely secondary to an intussusception. He was managed on an NG tube and did not show any improvement. He was taken to surgery and a small bowel resection was performed at the intussusception site. NG tube remained in place when the patient was on the floor. He began to have bowel function and NG tube was removed. His diet was slowly advanced. His pain was well-controlled. He was deemed stable for discharge. Still awaiting pathology results. Procedures: Exploratory laparotomy, small bowel resection Patient Condition at Discharge: Stable Plan - Discharge Summary Discharge Rx Participant: Yes New Discharge Prescriptions: Continue Ibuprofen [Motrin Ib] 200 mg PO DAILY Saw [place] 1,000 mg PO DAILY Bifidobacterium Infantis [Align] 10.5 mg PO DAILY Discharge Medication List Bifidobacterium Infantis [Align] 10.5 mg PO DAILY 12/10/17 [History] Ibuprofen [Motrin Ib] 200 mg PO DAILY 12/10/17 [History] Saw [place] 1,000 mg PO DAILY 12/10/17 [History] Follow up Appointment(s)/Referral(s): Cyril Reynolds MD [Primary Care Provider] - 1-2 days Juvenal Steward DO [Doctor of Osteopathic Medicine] - 1 Week Activity/Diet/Wound Care/Special Instructions: No lifting greater than 10 pounds Continue soft diet Okay to shower, do not scrub soap on incision Discharge Disposition: HOME SELF-CARE
== END 2017-12-16 11:54 | disposition home or self-care (01) | DRG 331 ==
LOC: EC 17:33 → 3SUR 18:46
PROVIDERS: ADMIT Surgery; ATTEND Surgery
PROC: 0DB80ZZ Excision of Small Intestine, Open Approach (ICD-10-PCS; principal; 2017-12-11 09:40)
DX: K56.1 Intussusception (principal); K56.691 Other complete intestinal obstruction; D13.30 Benign neoplasm of unspecified part of small intestine; Z88.5 Allergy status to narcotic agent; Z91.048 Other nonmedicinal substance allergy status
CPT/HCPCS: 74019; 80048; 80053; 83735; 85025; 88309; 88341; 88342; 94760; 99285